=== PATIENT | female | born 1955 | race Caucasian/White ===

== ENCOUNTER → 2019-12-14 | Day surgery (SDC) | payer BC ==
[~2019-12-14] MED LIST: ASPIRIN81 MG; ATORVASTATIN CA10 MG PO; COQ-1030 MG; FAMOTIDINE20 MG PO; HYZAAR 100-12.1 EACH; LIDOCAINE HCL 2% LOCAL INJ 5 ML SDV VIAL INJ ONE; MIDAZOLAM HCL 2 MG/2 ML VIAL ONE; MULTI-VITAMIN1 EACH; PROPOFOL IV EMULSION 10 MG/ML 20 ML VIAL ONE
--- OUTSIDE RECORDS SUMMARY | 2019-12-14 06:33 | XMS REPORT | Summary of Care ---
Author Author [facility] - Health Organization [facility] - Health Address Unknown Phone Unavailable Care Team Providers Care Preschool Adviser Name Role Phone Buster Samuel MD PCP Reason for Referral * (Routine) Referred By Contact Referred To Contact Status Reason Specialty Diagnoses / Procedures Buster Samuel MD [address] [place] [phone] Emory Martinez 4001 [facility]. [address] [address] New Request Patient is Diagnoses Established with a Gastroesophageal Specific Provider reflux disease with esophagitis Other dysphagia P rocedures CONSULT/REFERRAL GASTROENTEROLOGY Reason for Visit * Reason Comments REFERRAL GI and Dr Alvares Derm Encounter Details Care Team Description Date Type Department Buster Samuel MD [address] [place] [phone] Gastroesophageal reflux disease with esophagitis (Primary Dx); Other dysphagia 11/09/2019 Office Visit [facility] [address] [phone] Allergies Comments Active Allergy Reactions Severity Noted Date Penicillin Rash 12/22/2017 Yeast infection Sulfa (Sulfonamide Other - See 12/22/2017 Antibiotics) comments documented as of this encounter (statuses as of 11/09/2019) Medications End Date Status Medication Sig Dispensed Refills Start Date Active aspirin (ASPIRIN LOW Take 81 mg by 0 DOSE) 81 mg EC tablet mouth daily. Active ranitidine 150 mg tablet Take 150 mg 0 by mouth daily. Active atorvastatin 10 mg Take 1 tablet 30 tablet 12 tabletIndications: by mouth at 9 Hypercholesterolemia bedtime. Active losartan-hydrochlorothiaz Take 1 tablet 30 tablet 12 cathie 100-12.5 mg per by mouth 9 tabletIndications: daily. Essential hypertension Active cefUROXime 250 mg Take 1 tablet 20 tablet 0 tabletIndications: by mouth 2 9 Cystitis (two) times daily. documented as of this encounter (statuses as of 11/09/2019) Active Problems Problem Noted Date Essential hypertension 12/22/2017 Hypercholesterolemia 12/22/2017 documented as of this encounter (statuses as of 11/09/2019) Immunizations Name Administration Dates Next Due Influenza Virus Vaccine 07/12/2019 (3+ yrs) documented as of this encounter Social History Date Tobacco Use Types Packs/Day Years Used Never Smoker Smokeless Tobacco: Never Used Drinks/Week oz/Week Comments Alcohol Use No Sex Assigned at Date Recorded Not on file Industry Job Start Date Occupation Not on file Not on file Not on file Travel End Travel History Travel Start No recent travel history available. documented as of this encounter Last Filed Vital Signs Reading Time Taken Comments Vital Sign 133/83 11/09/2019 10:55 AM OPTICAL COATING TECHNICIAN Blood Pressure 63 11/09/2019 10:55 AM OPTICAL COATING TECHNICIAN Pulse 36.4 C (97.6 F) 11/09/2019 10:55 AM OPTICAL COATING TECHNICIAN Temperature 16 11/09/2019 10:55 AM OPTICAL COATING TECHNICIAN Respiratory Rate - - Oxygen Saturation - - Inhaled Oxygen Concentration 92.1 kg (203 lb) 11/09/2019 10:55 AM OPTICAL COATING TECHNICIAN Weight 162.6 cm (5' 4") 11/09/2019 10:55 AM OPTICAL COATING TECHNICIAN Height 34.84 11/09/2019 10:55 AM OPTICAL COATING TECHNICIAN Body Mass Index documented in this encounter Progress Notes * Buster Samuel MD - 11/09/2019 10:45 AM OPTICAL COATING TECHNICIAN CC: patient had dysphagia 2 days ago Shikha is a 63 year old female Patient felt like food hung up in lower esophagus 2 days ago. Finally passed aft er about 20 minutes Allergies Allergen Reactions Penicillin Rash Sulfa (Sulfonamide Antibiotics) Other - See comments Yeast infection Current Outpatient Medications Medication Sig Dispense Refill cefUROXime 250 mg tablet Take 1 tablet by mouth 2 (two) times daily. 20 tabl et 0 atorvastatin 10 mg tablet Take 1 tablet by mouth at bedtime. 30 tablet 12 losartan-hydrochlorothiazide 100-12.5 mg per tablet Take 1 tablet by mouth d aily. 30 tablet 12 ranitidine 150 mg tablet Take 150 mg by mouth daily. aspirin (ASPIRIN LOW DOSE) 81 mg EC tablet Take 81 mg by mouth daily. No current facility-administered medications for this visit. Past Medical History: Diagnosis Date Hyperlipidemia Hypertension Past Surgical History: Procedure Laterality Date CHOLECYSTECTOMY HYSTERECTOMY Social History Socioeconomic History Marital status: Spouse name: Not on file Number of children: Not on file Years of education: Not on file Highest education level: Not on file Occupational History Not on file Social Needs Financial resource strain: Not on file Food insecurity: Worry: Not on file Inability: Not on file Transportation needs: Medical: Not on file Non-medical: Not on file Tobacco Use Smoking status: Never Smoker Smokeless tobacco: Never Used Substance and Sexual Activity Alcohol use: No Drug use: No Sexual activity: Yes control/protection: Surgical Lifestyle Physical activity: Days per week: Not on file Minutes per session: Not on file Stress: Not on file Relationships Social connections: Talks on phone: Not on file Gets together: Not on file Attends moravian service: Not on file Active member of club or organization: Not on file Attends meetings of clubs or organizations: Not on file Relationship status: Not on file Intimate partner violence: Fear of current or ex partner: Not on file Emotionally abused: Not on file Physically abused: Not on file Forced sexual activity: Not on file Other Topics Concern Not on file 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 She appears well-dev eloped and well-nourished. HENT: Head: Normocephalic and atraumatic. Eyes: Pupils are equal, round, and reactive to light. Conjunctivae are normal. Neck: Normal range of motion. Neck supple. No JVD present. No tracheal deviation present. No thyromegaly present. Cardiovascular: Normal rate, regular rhythm, normal heart sounds and intact dist al pulses. Exam reveals no gallop and no friction rub. No murmur heard. Pulmonary/Chest: Effort normal and breath sounds normal. No respiratory distress . She has no wheezes. She has no rales. She exhibits no tenderness. Abdominal: Soft. Bowel sounds are normal. She exhibits no distension and no mass . There is no tenderness. There is no rebound and no guarding. Musculoskeletal: Normal range of motion. She exhibits no edema or tenderness. Lymphadenopathy: She has no cervical adenopathy. Neurological: She is alert and oriented to person, place, and time. Skin: Skin is warm and dry. Diagnosis: 1. Gastroesophageal reflux disease with esophagitis CONSULT/REFERRAL GASTROENTE ROLOGY 2. Other dysphagia CONSULT/REFERRAL GASTROENTEROLOGY Follow up: prn Patient Care Team: Buster Samuel MD as PCP - General ([facility]-FAMILY MEDICINE) Plan of care, desired health behaviors, goals,& medication discussed with patient. Education resources & self management tools provided and reviewed with AVS. Patient/guardian/family verbalized understanding & agrees to plan of care. Barriers to care: None Ability to manage care: Good CAL COATING TECHNICIAN documented in this encounter Plan of Treatment Health Maintenance Due Date Last Done Comments DTaP,Tdap,and Td Vaccines 12/21/1967 (1 - Tdap) Zoster Recombinant 2006 Vaccine (SHINGRIX) (1 of 2) Breast Cancer Screening 07/19/2018 07/19/2017 (MAMMOGRAM) PAP SMEAR 12/19/2021 12/19/2018 COLONOSCOPY 06/27/2023 06/27/2013 INFLUENZA VACCINE Completed 07/12/2019, 07/28/2017, 07/28/2015, Additional history exists HEPATITIS C (HCV) SCREEN Completed 07/19/2019 PNEUMOCOCCAL 0-64 YEARS Aged Out No longer eligible based COMBINED SERIES on patient's age to complete this topic documented as of this encounter Results Not on filedocumented in this encounter Visit Diagnoses Diagnosis Gastroesophageal reflux disease with esophagitis - Primary Other dysphagia documented in this encounter Insurance Type Payer Benefit Subscriber ID Effective Phone Address Plan / Dates Group O BCBS OF [facility] BCBS [id number] 2019-P [phone] [id number] [facility] [id number] documented as of this encounter
--- OUTSIDE RECORDS SUMMARY | 2019-12-14 06:33 | XMS REPORT | Summary of Care ---
Author Author [facility] - Health Organization [facility] - Health Address Unknown Phone Unavailable Care Team Providers Care Religious Education Coordinator Name Role Phone Buster Samuel MD PCP Reason for Referral * (Routine) Referred By Contact Referred To Contact Status Reason Specialty Diagnoses / Procedures Buster Samuel MD [address] [place] [phone] Emory Martinez 4001 [facility]. [address] [address] New Request Patient is Diagnoses Established with a Gastroesophageal Specific Provider reflux disease with esophagitis Other dysphagia P rocedures CONSULT/REFERRAL GASTROENTEROLOGY Reason for Visit * Reason Comments REFERRAL GI and Dr Alvares Derm Encounter Details Care Team Description Date Type Department Buster Samuel MD [address] [place] [phone] Gastroesophageal reflux disease with esophagitis (Primary Dx); Other dysphagia 11/09/2019 Office Visit [facility] [address] [phone] Allergies Comments Active Allergy Reactions [...] Comments Vital Sign 133/83 11/09/2019 10:55 AM DROP FORGE HAND Blood Pressure 63 11/09/2019 10:55 AM DROP FORGE HAND Pulse 36.4 C (97.6 F) 11/09/2019 10:55 AM DROP FORGE HAND Temperature 16 11/09/2019 10:55 AM DROP FORGE HAND Respiratory Rate - - Oxygen Saturation - - Inhaled Oxygen Concentration 92.1 kg (203 lb) 11/09/2019 10:55 AM DROP FORGE HAND Weight 162.6 cm (5' 4") 11/09/2019 10:55 AM DROP FORGE HAND Height 34.84 11/09/2019 10:55 AM DROP FORGE HAND Body Mass Index documented in this encounter Progress Notes * Buster Samuel MD - 11/09/2019 10:45 AM DROP FORGE HAND CC: patient had dysphagia 2 days ago [...] file Gets together: Not on file Attends sikh service: Not on file Active member of [...] 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
--- OUTSIDE RECORDS SUMMARY | 2019-12-14 06:33 | XMS REPORT ---
Author Author [facility] Address Unknown Phone Unavailable Care Team Providers Care Pbx Inspector Name Role Phone Unavailable Unavailable Problems This patient has no known problems. Allergies, Adverse Reactions, Alerts This patient has no known allergies or adverse reactions. Medications This patient has no known medications.
--- OUTSIDE RECORDS SUMMARY | 2019-12-14 06:33 | XMS REPORT | Summary of Care ---
Author Author [facility] - Health Organization [facility] - Health Address Unknown Phone Unavailable Care Team Providers Care Business Unit Leader Name Role Phone Buster Samuel MD PCP Reason for Referral * (Routine) Referred By Contact Referred To Contact Status Reason Specialty Diagnoses / Procedures Buster Samuel MD [address] [place] [phone] New Request Dermatology Diagnoses Skin problem P rocedures CONSULT/REFERRAL DERMATOLOGY * (Routine) Referred By Contact Referred To Contact Status Reason Specialty Diagnoses / Procedures Buster Samuel MD [address] [place] [phone] New Request Patient Requested Orthopedic Diagnoses Specific Provider Surgery Back pain, unspecified back location, unspecified back pain laterality, unspecified chronicity P rocedures CONSULT/REFERRAL CHIROPRACTOR Reason for Visit * Reason Comments Referral/consult Encounter Details Care Team Description Date Type Department Buster Samuel MD [address] [place] [phone] Referral/consult 10/25/[address] [phone] Allergies Comments Active Allergy Reactions Severity Noted Date Penicillin Rash 12/22/2017 Yeast infection Sulfa (Sulfonamide Other - See 12/22/2017 Antibiotics) comments documented as of this encounter (statuses as of 10/26/2019) Medications End Date Status Medication Sig Dispensed [...] as of this encounter (statuses as of 10/26/2019) Active Problems Problem Noted Date Essential hypertension 12/22/2017 Hypercholesterolemia 12/22/2017 documented as of this encounter (statuses as of 10/26/2019) Immunizations Name Administration Dates Next Due Influenza [...] of this encounter Last Filed Vital Signs Not on filedocumented in this encounter Plan of Treatment Health [...] filedocumented in this encounter Visit Diagnoses Diagnosis Back pain, unspecified back location, unspecified back pain laterality, unspecified chronicity - Primary Skin problem documented in this encounter Insurance Type Payer Benefit Subscriber ID Effective Phone Address Plan / Dates Group [facility] [id number] 2019-P [phone] [address] [id number] [facility] [id number] documented as of this encounter
--- OUTSIDE RECORDS SUMMARY | 2019-12-14 06:33 | XMS REPORT | Summary of Care ---
Author Author [facility] - Health Organization [facility] - Health Address Unknown Phone Unavailable Care Team Providers Care Catering Service Manager Name Role Phone Buster Samuel MD PCP Reason for Referral * (Routine) Referred By Contact Referred To Contact Status Reason Specialty Diagnoses / Procedures Buster Samuel MD [address] [place] [address] [facility] [phone] Sawyer Ngo MD [address] [place] [phone] New Request Patient is Diagnoses Established with a Numerous moles Specific Provider P rocedures CONSULT/REFERRAL DERMATOLOGY * (Routine) Referred By Contact Referred To Contact Status Reason Specialty Diagnoses / Procedures Buster Samuel MD [address] [place] [address] [address] Emory Martinez [address] [address] New Request Patient is Diagnoses Established with a Gastroesophageal Specific Provider reflux disease with esophagitis Other dysphagia P rocedures CONSULT/REFERRAL GASTROENTEROLOGY Reason for Visit * Reason Comments REFERRAL GI and Dr Alvares Derm Encounter Details Care Team Description Date Type Department Buster Samuel MD [address] [place] [address] [facility] [phone] Gastroesophageal reflux disease with esophagitis (Primary Dx); Other dysphagia; Numerous moles 11/09/2019 Office Visit [facility] [place] [phone] Allergies Comments Active Allergy Reactions Severity Noted [...] Comments Vital Sign 133/83 11/09/2019 10:55 AM VICE PRESIDENT OF TALENT ACQUISITION Blood Pressure 63 11/09/2019 10:55 AM VICE PRESIDENT OF TALENT ACQUISITION Pulse 36.4 C (97.6 F) 11/09/2019 10:55 AM VICE PRESIDENT OF TALENT ACQUISITION Temperature 16 11/09/2019 10:55 AM VICE PRESIDENT OF TALENT ACQUISITION Respiratory Rate - - Oxygen Saturation - - Inhaled Oxygen Concentration 92.1 kg (203 lb) 11/09/2019 10:55 AM VICE PRESIDENT OF TALENT ACQUISITION Weight 162.6 cm (5' 4") 11/09/2019 10:55 AM VICE PRESIDENT OF TALENT ACQUISITION Height 34.84 11/09/2019 10:55 AM VICE PRESIDENT OF TALENT ACQUISITION Body Mass Index documented in this encounter Progress Notes * Buster Samuel MD - 11/09/2019 10:45 AM VICE PRESIDENT OF TALENT ACQUISITION CC: patient had dysphagia 2 days ago [...] file Gets together: Not on file Attends roman catholic service: Not on file Active member of [...] 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
--- OUTSIDE RECORDS SUMMARY | 2019-12-14 06:33 | XMS REPORT | Summary of Care ---
Author Author [facility] - Health Organization [facility] - Health Address Unknown Phone Unavailable Care Team Providers Care Oracle Soa Developer Name Role Phone Denys Chavarria PCP Reason for Visit * Reason Comments Referral/consult Encounter Details Care Team Description Date Type Department Buster Samuel MD [address] [place] [phone] Referral/consult 05/16/2019 Telephone [facility] [address] [phone] Allergies Comments Active Allergy Reactions Severity Noted Date Penicillin Rash 12/22/2017 Yeast infection Sulfa (Sulfonamide Other - See 12/22/2017 Antibiotics) comments documented as of this encounter (statuses as of 05/16/2019) Medications End Date Status Medication Sig Dispensed [...] as of this encounter (statuses as of 05/16/2019) Active Problems Problem Noted Date Essential hypertension 12/22/2017 Hypercholesterolemia 12/22/2017 documented as of this encounter (statuses as of 05/16/2019) Social History Date Tobacco Use Types Packs/Day [...] Health Maintenance Due Date Last Done Comments HEPATITIS C (HCV) SCREEN 1956 DTaP,Tdap,and Td Vaccines 12/21/1975 (1 - Tdap) PAP SMEAR 1977 MAMMOGRAM 1996 COLONOSCOPY 2006 Zoster Recombinant 2006 Vaccine (SHINGRIX) (1 of 2) INFLUENZA VACCINE (#1) 2019 07/28/2017, 07/28/2015, 08/01/2013, Additional history exists PNEUMOCOCCAL 0-64 YEARS Aged Out No longer eligible based COMBINED SERIES on patient's age to complete this topic documented as of this encounter Results Not on filedocumented in this encounter Insurance Type Payer Benefit Subscriber ID Effective Phone Address Plan / Dates Group Indemnity NEW [employer] LIFE [place] [id number] 2017- LIFE Present documented as of this encounter
[2019-12-14 09:50] VITALS: BP 131/65
--- NOTE | 2019-12-14 15:29 | Operative Report ---
DATE OF PROCEDURE: 12/14/2019 SURGEON: Emory Martinez MD PROCEDURE PERFORMED: Esophagogastroduodenoscopy. PREOPERATIVE DIAGNOSIS: Dysphagia. POSTOPERATIVE DIAGNOSES: Hiatal hernia, reflux esophagitis, and gastritis. PREOPERATIVE MEDICATIONS: Consisted of general anesthesia. DESCRIPTION OF PROCEDURE: Using an [email or web address] video gastroscope, it was inserted into the patient's oropharynx, advanced to hypopharynx and down to the esophagus. The mucosa present in the esophagus was normal. There was evidence of reflux esophagitis sitting above hiatal hernia, which was sliding type from approximately 37-38 cm. Biopsies were obtained. The stomach was entered and insufflated with air. There was evidence of a mild gastritis throughout the stomach, but no ulcerations. A biopsy was obtained in the antrum looking for the H. pylori infection. The pylorus was visualized and entered. The duodenal bulb and postbulbar duodenum were found to be within normal limits. The endoscope was then withdrawn back up into the stomach. Retroflexed viewing the cardia and fundus below normal except for evidence of a small hernia seen as mentioned above. The endoscope was placed back up into the body of the stomach and then slowly withdrawn back up into the esophagus, hypopharynx, oropharynx, and the patient's mouth and the procedure was ended. In conclusion, we have a hiatal hernia with reflux esophagitis and gastritis. Emory Martinez MD SAF/MODL /[id number]
== END | disposition home or self-care (01) ==
LOC: OR 06:31
PROVIDERS: ATTEND Internal Medicine Gastroenterology
DX: K21.0 Gastro-esophageal reflux disease with esophagitis (principal); K29.70 Gastritis, unspecified, without bleeding; K44.9 Diaphragmatic hernia without obstruction or gangrene; K57.90 Diverticulosis of intestine, part unspecified, without perforation or abscess without bleeding; Z79.82 Long term (current) use of aspirin; Z68.41 Body mass index [BMI] 40.0-44.9, adult; I10 Essential (primary) hypertension; E78.5 Hyperlipidemia, unspecified; Z88.0 Allergy status to penicillin; Z88.2 Allergy status to sulfonamides; Z86.2 Personal history of diseases of the blood and blood-forming organs and certain disorders involving the immune mechanism
CPT/HCPCS: 43239; 93005; J2001; J2250; J2704

== ENCOUNTER → 2023-03-25 | Outpatient (CLI) | payer MEDICARE, BC ==
[~2023-03-25] MED LIST changes: -LIDOCAINE HCL 2% LOCAL INJ 5 ML SDV VIAL INJ ONE; -MIDAZOLAM HCL 2 MG/2 ML VIAL ONE; -PROPOFOL IV EMULSION 10 MG/ML 20 ML VIAL ONE
== END ==
LOC: DX 09:27
PROVIDERS: ATTEND Internal Medicine Gastroenterology
DX: K57.00 Diverticulitis of small intestine with perforation and abscess without bleeding (principal)
CPT/HCPCS: 74280